=== PATIENT | male | born 1955 | race Two or more races ===

== ENCOUNTER → 2016-08-04 08:17 | Day surgery (SDC) | payer OTHER ==
--- NOTE | 2016-07-28 16:55 | HP ---
PREOPERATIVE HISTORY AND PHYSICAL: DATE OF ADMISSION/SURGERY: 08/04/16 ATTENDING SURGEON: Dr. Quevedo (DICTATED BY TRIPP PRYOR) PROCEDURE: Left total shoulder reverse. CHIEF COMPLAINT: Left shoulder pain. HISTORY OF PRESENT ILLNESS: Mr. Mendoza is a 61-year-old gentleman who presents to the clinic for ongoing left shoulder pain due to severe osteoarthritis as well as rotator cuff tear. The patient has failed conservative measures and therefore, agreed to undergo a left total shoulder reverse with Dr. Quevedo on . PAST MEDICAL HISTORY: 1. Hypertension. 2. High cholesterol. 3. Arthritis. PAST SURGICAL HISTORY: 1. Left knee x4. 2. Right triceps in 2000. 3. Right biceps repair in 2007. 4. Right shoulder done, 2005. 5. Hernia repair, 1991. The patient has difficulty with spinal anesthesia. Otherwise, no complications with anesthesia. MEDICATIONS: 1. Amoxicillin 500 mg, take 4 tabs an hour prior to dental work. 2. Lisinopril 10 mg, take 1 daily in the morning. 3. Simvastatin 10 mg 1 by mouth every day. 4. Hydrochlorothiazide 25 mg 1 by mouth every day. 5. Multivitamins 1 tab by mouth daily. ALLERGIES: No known drug allergies. FAMILY HISTORY: Cancer in mother. SOCIAL HISTORY: He is a . He lives with his spouse. He chews smokeless tobacco. He denies alcohol use. He is right hand dominant. REVIEW OF SYSTEMS: A 14-point review of systems was reviewed with the patient and found to be negative. Negative for chest pain, shortness of breath, history of bleeding disorder, history of DVT or PE. PHYSICAL EXAMINATION GENERAL: Well-developed, well-nourished 61-year-old male in no acute distress. Alert and oriented x3. Appropriate mood and affect. VITAL SIGNS: Height 75, weight 118. Pulse 69, blood pressure 131/82, temperature 97.8. BMI 22.5. HEENT: Normocephalic, atraumatic. NECK: Supple. Throat clear. PULMONARY: Lungs clear to auscultation bilaterally. No wheezing, rhonchi, or rales. CARDIO: Regular rate and rhythm. S1, S2. No murmurs, gallops, or rubs. No edema. ABDOMEN: Positive bowel sounds. Soft, nontender. NEUROLOGIC: Alert and oriented x3. Cranial nerves grossly intact. Sensation is intact to light touch. MUSCULOSKELETAL: Left upper extremity skin is intact. No warmth or erythema. Tenderness over the biceps groove and the anterior joint line. Mildly tender over the AC joint. Forward flexion 140, abduction 130, external rotation 40, significant pain. +4/5 strength to supraspinatus and infraspinatus testing. +5 /5 with belly press and bear hug with some discomfort. Positive Neer, Dejesus, [place], and Speed's. Diminished sensation of the finger tips. +2 radial pulse , +2 pulse. STUDIES: MRI of the left shoulder revealed full thickness tear of the supraspinatus tendon with biceps tendinitis, mild undersurface subscapularis tearing, and advanced glenohumeral arthritis and AC joint arthritis. IMPRESSION: Left shoulder severe osteoarthritis and rotator cuff tear. PLAN: The patient is scheduled to undergo a left total shoulder reverse with Dr. Quevedo on 08/04/16. The patient understands that he is young for a surgery ; however, would like to continue with the surgery due to his significant pain and interference with daily activities. He will return to the office 10 to 14 days postop for followup and x-rays. Percocet will be used for postop pain management and Keflex will be used for antibiotic prophylaxis. TRIPP PRYOR [id number]/[facility] #: [id number] JANICE
[~2016-08-04 08:17] MED LIST: Buffered Lidocaine 0.9% SYRIN* 5 ML/SYR SYRINGE INTRADERM ONE; Buffered Lidocaine 0.9% SYRIN* 5 ML/SYR SYRINGE ONE; Bupivacaine 0.25% SDV* 30 ML ONE; Bupivacaine 0.5% SDV PF* 30 ML VIAL ONE; Dexamethasone IV* 4 MG/ML 1 ML (4 MG) ONE; Famotidine IV* 10 MG/ML 2 ML (20 mg) IV ONE; Famotidine IV* 10 MG/ML 2 ML (20 mg) ONE; KETAMINE HCL* 50 MG/ML 10 ML VIAL ONE; Lidocaine 2% PF * 5 ML VIAL ONE; Midazolam* 1 MG/ML 5 ML VIAL (5 MG) ONE; Morphine INJ* 2 MG/ML 1 ML SYRINGE IV PRN; Ondansetron INJ* 2 MG/ML VIAL ONE; PROCHLORPERAZINE INJ 5 MG/ML 2 ML VIAL IV PRN; PROCHLORPERAZINE INJ 5 MG/ML 2 ML VIAL ONE; Propofol* 10 MG/ML 20 ML BTL IV PUSH ONE; ceFAZolin 2 GM PREMIX(*) 2 GM/50 ML BAG IVPB ONE; fentaNYL* 50 MCG/ML 2 ML VIAL (100 MCG VIAL) IV PRN; fentaNYL* 50 MCG/ML 2 ML VIAL (100 MCG VIAL) ONE; oxyCODONE/Acetamin 5/325 MG* TAB PO PRN
[2016-08-04 15:29] VITALS: BP 161/88
--- NOTE | 2016-08-08 05:01 | OP ---
CC: PCP OPERATIVE REPORT: DATE OF OPERATION: 08/04/16 DATE OF : 59 ATTENDING SURGEON: Valentin Quevedo MD PRESS TENDER [employer] GOODS: TRIPP Gonzalez An senior agricultural assistant was needed for the entirety of the case to help with positioning, retraction, and was utilized throughout all portions of the case. ANESTHESIOLOGIST: Dr. Barcenas. ANESTHESIA: General interscalene block. PRE-OP DIAGNOSES: 1. Left shoulder rotator cuff tear. 2. Severe glenohumeral arthritis. 3. Biceps tendinitis. POST-OP DIAGNOSES: 1. Left shoulder rotator cuff tear. 2. Severe glenohumeral arthritis. 3. Biceps tendinitis. OPERATIVE PROCEDURE: Left shoulder arthroscopy with: 1. Extensive glenohumeral debridement including chondroplasty. 2. Subacromial decompression with acromioplasty. 3. Rotator cuff repair of the supraspinatus and the anterior portion of the infraspinatus tendon. 4. Subpectoral biceps tenodesis. INDICATIONS: Omega Mendoza is a 61-year-old gentleman who has a significant osteoarthritis of the left shoulder, who had persistent rotator cuff symptoms. He underwent MRI after failing intraarticular injections, which diagnosed him with a rotator cuff tear. After extensive discussion and due to the patient's age, different options were discussed. I did recommend strongly to him that due to his young age, glenohumeral debridement with rotator cuff repair might be more appropriate, so that he could theoretically be a candidate for total shoulder replacement within the next few years. After extensive discussion outlining the risks and benefits of surgery versus nonoperative treatment, he has elected to proceed with surgery. Risks included but are not limited to bleeding, infection, damage to nerve, vessels, surrounding structures, wound nonhealing, persistent pain, need for further surgery, risks of anesthesia, risks of DVT, incomplete relief of symptoms, scarring, persistent pain, stiffness, risks of DVT. IMPLANTS USED: Two HEALICOIL, one MULTIFIX as well as one 2.8 mm Q-FIX anchor. COMPLICATIONS: None. ESTIMATED BLOOD LOSS: Minimal. DESCRIPTION OF PROCEDURE: The patient was greeted in the preoperative area by the attending surgeon. The correct extremity was marked and consent was confirmed. The patient then underwent interscalene nerve block by the anesthesiologist after which the patient was then brought to the operating suite , where he was placed in a supine on the operating table. He then underwent general anesthesia with endotracheal LMA intubation after which the left arm was prepped and draped in the usual sterile fashion beginning with a chlorhexidine soap, scrub, and alcohol wipe and final prep with ChloraPrep. After appropriate surgical pause indicating side, site, procedure, and administration of antibiotics, the posterolateral portal was made sharply with the 11 blade. The scope was introduced to the joint. The joint was examined. It was difficult to access the joint. Initially, the subacromial space was accessed and the lateral portal was made in an outside-in fashion. There was abundant bursa that was present. The shaver was then used to debride this bursa back and electrocautery device was also used to skeletonize the outer surface of the acromion. At this point, the rotator cuff tear was evident. It was an unusual type tear. After the bursectomy had been done, an attempt was made to get back to the glenohumeral joint. This was much easier at this point. This was a very tight joint and there were grade 4 changes of the glenoid and the humeral head. There was unstable fraying tissue of the anterior posterior superior labrum. The biceps was tendinopathic as well as had tendinitis. There was abundant frayed tissue. At this point, the anterior portal was made in an outside-in fashion. Shaver was used to remove the unstable flaps and do a small chondroplasty of the glenoid and the humeral head and to remove any unstable flaps and loose debris. The biceps was then tenotomized using the arthroscopic scissors. There was evidence preoperatively of a large loose body that was in the subcoracoid space. This was attempted to be obtained, but it was found to be enveloped in an abundant soft tissue and therefore left. It was not floating in the joint. It was not loose. After the debridement was complete, attention was directed back to the subcoracoid space. The acromioplasty was then completed using 4-0 oval jose antonio after which the rotator cuff was examined. There was a U-shaped tear that was evident involving the entire supraspinatus as well as part of the infraspinatus. There was delaminated segment too such that the U-shaped tear was almost arching the intralaminar tear. It took sometime to truly identify the tissues involved in the U-shaped tear. There was good quality tissue and it did bleed when probed or when shaved. Therefore, the plan was made to keep it. The remainder of the delaminated tear was then released from any attachment to the greater tuberosity. Care was taken to repair the rotator cuff portion with the shaver device and allow for it to mobilize well so that both pieces could be grabbed in one bite. The bony surfaces were then prepared in the usual fashion beginning with the electrocautery, with shaver as well as the rasp to allow for good bony bleeding. After this was completed and the cuff tissue was thoroughly mobilized, the two 4.75 HEALICOIL anchors were placed in the medial row, anterior and posterior aspect of the tear. These were passed in a horizontal mattress configuration and were essentially passed through both portions in the tissue. These were then tied down and allowed for good approximation of the tissue. After this, one strand from each knot were then passed through a MULTIFIX anchor to allow for for knotless fixation of the lateral row. Once this was done, this allowed for compression of the cuff and there was no evidence of dog ears. The final images were obtained. All fluids and debris was removed from the subacromial space. Attention was directed to the biceps. The bed was airplaned slightly to the right side and the anterior aspect of the shoulder was prepped again using ChloraPrep. A 15 blade was used to incise the skin and soft tissues were carefully dissected using Metzenbaum scissors. Once the fascia was identified, the remainder of the dissection was done bluntly. Electrocautery device was used to maintain hemostasis. The pec tendon was identified and retraced proximally. The biceps groove was palpated. A small césar in the fascia was done. The biceps was brought through the wound. It was found it had abundant tendinopathy as well as tendinitis. The groove was prepared in the usual fashion with electrocautery device, red ball rasp, and osteotome to allow for a good bony bleeding bed. The Q-Fix 2.8 mm guide was then used to drilling the cortices and was then secured with excellent fixation. The sutures were then passed through the tendon approximately 1 cm proximal to the musculotendinous junction in a Haseeb-William type configuration after which the excess stump was sharpy excised and the biceps was shoved back to the groove and secured. The portal sites were copiously irrigated with sterile saline. The anterior wound was closed in layers of 2-0 Vicryl and 3-0 Monocryl. The portals were closed with 3-0 nylon. The sterile dressings were applied. He was then awoke from anesthesia, Cryo/Cuff and Ultra sling were placed. He was then transferred to the PACU in stable condition. POSTOPERATIVE PLAN: He will be nonweightbearing. He will be in a sling for 6 weeks. He will be allowed to work on elbow, hand and wrist range of motion. He will be discharged on pain medications as well as antibiotics. DVT prophylaxis was considered, but deferred due to no previous personal or family history. I will see the patient back in 10 to 14 days. [id number]/[facility] #: [id number] MTDD
== END | disposition home or self-care (01) ==
LOC: EDSTATUS 07:30 → AA 08:17 → OR 08:17 → UNDOADMIN 08:17
PROVIDERS: ATTEND Orthopaedic Surgery
DX: M75.122 Complete rotator cuff tear or rupture of left shoulder, not specified as traumatic (principal); M19.012 Primary osteoarthritis, left shoulder; M75.22 Bicipital tendinitis, left shoulder; I10 Essential (primary) hypertension; E78.00 Pure hypercholesterolemia, unspecified; M19.90 Unspecified osteoarthritis, unspecified site; Z72.0 Tobacco use
CPT/HCPCS: C1713; C1776; J0690; J0780; J1100; J2250; J2405; J2704; J3010